=== PATIENT | male | born 1945 ===

== ENCOUNTER 2025-11-13 12:34 | Outpatient (CLI) | payer MEDICARE | END 2025-11-13 12:35 | disposition home or self-care (01) | LOC: CSHWCC 12:34 | PROVIDERS: ATTEND Nurse Practitioner Family | DX: E11.621 Type 2 diabetes mellitus with foot ulcer (principal); L97.512 Non-pressure chronic ulcer of other part of right foot with fat layer exposed; L97.522 Non-pressure chronic ulcer of other part of left foot with fat layer exposed | CPT/HCPCS: 11042; 97597; G0463; 99215 ==